=== PATIENT | female | born 1995 | race American Indian/Alaskan Native ===

== ENCOUNTER 2017-05-27 13:03 | Emergency (ER) | payer SELFPAY ==
[2017-05-27 15:55] LABS: HCG Qualitative,Urine Negative (Negative)
[2017-05-27] MEDS ORDERED: PROVENTIL IH ONE (20:34)
[2017-05-27] MEDS ORDERED: MOTRIN PO ONE (20:34)
[2017-05-27] MEDS ORDERED: DECADRON IM ONE (20:34)
--- NOTE | 2017-05-27 20:38 | Emergency Department Report ---
- General Chief Complaint: Upper Respiratory Infection Stated Complaint: COUGH/SOB/LOSS OF VOICE Time Seen by Provider: 05/27/17 20:33 Source: patient Mode of arrival: Ambulatory Limitations: No Limitations - History of Present Illness Initial Comments: 22-year-old -[place] female comes in complaining of difficulty breathing , headache, shortness of breathing, laryngitis, cough, rhinorrhea, nasal congestion, sore throat and wheezing worse at night. Patient reports she has a past medical history of asthma has been using her inhaler without much relief. Patient denies fever chills nausea vomiting. Patient denies any recent travels. She currently takes no medications on a daily basis. And has no known drug allergies. MD Complaint: cough, sore throat, rhinorrhea, nasal congestion -: week(s) (3) Severity: moderate Severity scale (0 -10): 7 Consistency: constant Improves With: nothing Worsens With: deep breaths - Related Data Previous Rx's Medication Instructions Recorded Last Taken Type Naproxen [Naprosyn TAB] 500 mg PO BID #30 tablet 05/15/14 Unknown Rx ALBUTEROL Inhaler [Proair] 2 puff IH QID PRN #1 inhalation 05/27/17 Unknown Rx Ibuprofen [Motrin 800 MG tab] 800 mg PO Q8HR PRN #30 tablet 05/27/17 Unknown Rx Levocetirizine Dihydrochloride 5 mg PO QDAY #30 tablet 05/27/17 Unknown Rx predniSONE [Deltasone] 20 mg PO QDAY #5 tab 05/27/17 Unknown Rx Allergies Allergy/AdvReac Type Severity Reaction Status Date / Time No Known Allergies Allergy Verified 05/15/14 13:05 ED Review of Systems ROS: Stated complaint: COUGH/SOB/LOSS OF VOICE Other details as noted in HPI Constitutional: denies: chills, fever ENT: throat pain, congestion (nasal), other (rhinorrhea, sneezing) Respiratory: cough, shortness of breath, wheezing (worse at night), other Cardiovascular: denies: chest pain, palpitations Endocrine: no symptoms reported Gastrointestinal: denies: abdominal pain, nausea, diarrhea Genitourinary: as per HPI Musculoskeletal: denies: back pain, joint swelling, arthralgia Skin: denies: rash, lesions Neurological: headache Psychiatric: denies: anxiety, depression Hematological/Lymphatic: denies: easy bleeding, easy bruising ED Past Medical Hx - Past Medical History Previous Medical History?: No Hx Asthma: Yes - Social History Smoking Status: Never Smoker Substance Use Type: None - Medications Home Medications: Home Medications Medication Instructions Recorded Confirmed Last Taken Type Naproxen [Naprosyn TAB] 500 mg PO BID #30 tablet 05/15/14 Unknown Rx ALBUTEROL Inhaler [Proair] 2 puff IH QID PRN #1 inhalation 05/27/17 Unknown Rx Ibuprofen [Motrin 800 MG tab] 800 mg PO Q8HR PRN #30 tablet 05/27/17 Unknown Rx Levocetirizine Dihydrochloride 5 mg PO QDAY #30 tablet 05/27/17 Unknown Rx predniSONE [Deltasone] 20 mg PO QDAY #5 tab 05/27/17 Unknown Rx ED Physical Exam - General Limitations: No Limitations General appearance: alert, in no apparent distress, obese, other (tearful) - Head Head exam: Present: atraumatic, normocephalic - Eye Eye exam: Present: normal appearance - ENT ENT exam: Present: mucous membranes moist, TM's normal bilaterally - Expanded ENT Exam Expanded Throat exam: Positive: tonsillomegaly. Negative: tonsillar erythema, tonsillar exudate - Neck Neck exam: Present: normal inspection - Respiratory Respiratory exam: Present: decreased breath sounds - Cardiovascular Cardiovascular Exam: Present: tachycardia - GI/Abdominal GI/Abdominal exam: Present: soft, normal bowel sounds - Extremities Exam Extremities exam: Present: normal inspection - Back Exam Back exam: Present: normal inspection - Neurological Exam Neurological exam: Present: alert, oriented X3 - Psychiatric Psychiatric exam: Present: normal affect, normal mood - Skin Skin exam: Present: warm, dry, intact, normal color. Absent: rash ED Course Vital Signs 05/27/17 14:24 Temperature 98 F Pulse Rate 103 H Respiratory 18 Rate Blood Pressure 133/86 O2 Sat by Pulse 98 Oximetry ED Medical Decision Making - Medical Decision Making Patient's been evaluated by this provider fast track. Discussed the patient will order chest x-ray, DuoNeb, steroids, ibuprofen. Critical care attestation.: If time is entered above; I have spent that time in minutes in the direct care of this critically ill patient, excluding procedure time. ED Disposition Clinical Impression: SOB (shortness of breath), Laryngitis Allergic rhinitis Qualifiers: Allergic rhinitis trigger: pollen Allergic rhinitis seasonality: unspecified seasonality Qualified Code(s): J30.1 - Allergic rhinitis due to pollen Disposition: DC-01 TO HOME OR SELFCARE Is pt being admited?: No Does the pt Need Aspirin: No Condition: Stable Instructions: Allergic Rhinitis (ED), Dyspnea (ED) Additional Instructions: Please take medication as prescribed. Please follow up with her primary care provider if symptoms persist or gets worse. Prescriptions: ALBUTEROL Inhaler [Proair] 2 puff IH QID PRN #1 inhalation PRN Reason: Shortness Of Breath Ibuprofen [Motrin 800 MG tab] 800 mg PO Q8HR PRN #30 tablet PRN Reason: Pain Levocetirizine Dihydrochloride 5 mg PO QDAY #30 tablet predniSONE [Deltasone] 20 mg PO QDAY #5 tab Referrals: PRIMARY CARE,MD [Primary Care Provider] - 3-5 Days Forms: Work/School Release Form(ED), Accompanied Note
[2017-05-27] MEDS ORDERED: DUONEB *Not for PRN Use IH ONE ×2 (21:30→21:31)
[2017-05-27 21:37] VITALS: BP 127/86
--- NOTE | 2017-05-27 22:12 | XRay Report ---
FINAL REPORT EXAM: XR CHEST ROUTINE 2V HISTORY: decreased breath sounds shortness of breathing TECHNIQUE: PA and lateral views of the chest PRIORS: None. FINDINGS: Lines, tubes, and devices: N/A Lungs and pleura: Trachea is normal in position. Lungs are clear of infiltrate, pleural effusion, vascular congestion, or pneumothorax. Cardiomediastinal silhouette: Cardiac and mediastinal silhouettes are unremarkable. Other: Bony structures are intact. IMPRESSION: No acute cardiopulmonary process seen.
== END 2017-05-27 23:45 | disposition home or self-care (01) ==
LOC: ED 13:03
DX: J30.9 Allergic rhinitis, unspecified (principal)
CPT/HCPCS: 71046; 81025; 94640; 96372; 99284; J1100